=== PATIENT | female | born 1990 | race Caucasian/White ===

== ENCOUNTER 2023-09-17 15:42 | Emergency (ER) | payer BC, SELFPAY ==
[2023-09-17 15:56] VITALS: BP 144/94; PULSE 72; RESP 16; TEMP 37.4; O2SAT 100
--- NOTE | 2023-09-17 16:31 | ED.DIZZY ---
HPI - Dizziness General Chief Complaint: Dizziness Stated Complaint: lightheaded,numbness Time Seen by Provider: 09/17/23 16:14 Source: patient, family (mother) and RN notes reviewed Mode of arrival: ambulatory Limitations: no limitations History of Present Illness HPI Narrative: Patient presents today complaining of dizziness that came on suddenly when she turned her head to the side while at work today approx 4 hours prior to exam. Dizziness is worse with head movement. Denies nausea or vomiting, or any additional symptoms. No [id number] treatment prior to arrival. Related Data Home Medications Medication Instructions Recorded Confirmed No Home Medications 09/17/23 09/17/23 Allergies Allergy/AdvReac Type Severity Reaction Status Date / Time spironolactone Allergy Intermediate Other Verified 09/17/23 16:02 Review of Systems Review of Systems: CONSTITUTIONAL: Denies body aches, fever, chills, or sweats. EYES: Denies visual changes, redness, or discharge. ENT: Denies rhinorrhea, congestion, sore throat, or otalgia. CARDIOVASCULAR: Denies chest pain, palpitations, or edema. RESPIRATORY: Denies cough or dyspnea. GASTROINTESTINAL: Denies abdominal pain, nausea, vomiting, or diarrhea. GENITOURINARY: Denies dysuria or hematuria. SKIN: Denies rash, itching, or wounds. MUSCULOSKELETAL: Denies back pain, joint pain, or myalgia. NEUROLOGIC: Denies headache, numbness, tingling, or weakness.+ dizziness PSYCH: Denies depression or anxiety. PMFSH Comments At time of signature, I have reviewed and agree with nursing past medical, surgical, social and family history unless otherwise noted. Please see nursing chart for further information. There is no relevant family history pertinent to the presenting complaint Exam Narrative: GENERAL: Well-appearing, well-nourished, and in no acute distress. HEAD: Normocephalic, atraumatic. EYES: EOMI. PERRL. No redness or drainage. Conjunctivae normal. ENT: Mucous membranes pink and moist. Nares clear. No rhinorrhea. TMs normal bilaterally. NECK: Normal AROM. Supple. No lymphadenopathy. CHEST: No respiratory distress. EXTREMITIES: Normal range of motion. No edema. Hand machine captain equal and strong. Dorsiflexion and plantar flexion equal and strong against resistance SKIN: Warm, dry, no rash. Capillary refill normal. Normal skin turgor. NEURO: No focal deficits. Alert and oriented x3. Gait steady. Dizziness elicited with head movement from side to side. Dizziness is also worse when rolling side to side while supine. PSYCH: Normal affect. No signs of depression or anxiety. Course Course Level of Care: Express Care Visit Vital Signs Vital signs: Vital Signs Temperature 99.3 F 09/17/23 15:56 Pulse Rate 72 09/17/23 15:56 Respiratory Rate 16 09/17/23 15:56 Blood Pressure 144/94 H 09/17/23 15:56 Pulse Oximetry 100 09/17/23 15:56 Oxygen Delivery Room Air 09/17/23 15:56 Temperature 99.3 F 09/17/23 15:56 Pulse Rate 72 09/17/23 15:56 Respiratory Rate 16 09/17/23 15:56 Blood Pressure 144/94 H 09/17/23 15:56 Pulse Oximetry 100 09/17/23 15:56 Oxygen Delivery Room Air 09/17/23 15:56 Reviewed MDM - Dizziness MDM Narrative Medical decision making narrative: Patient's symptoms are likely related to vertigo. Recommend meclizine and rest. [facility] Recommend PCP follow-up by the end of the week if symptoms are not improving. Anticipatory guidance given. ED precautions given. Differential Diagnosis Differential diagnosis: Likely benign paroxysmal positional vertigo, acute vestibular neuronitis and other (Otitis media) Critical Care Time Critical Care Time Critical Care Time: No Discharge Plan Discharge Clinical Impression: Vertigo Patient Disposition: Home, Self-Care Condition: Stable Instructions: Vertigo (DC) Additional Instructions: Your symptoms are likely related t
== END 2023-09-17 16:45 | disposition home or self-care (01) ==
PROVIDERS: Emergency Provider Nurse Practitioner
DX: R42 Dizziness and giddiness (principal)
CPT/HCPCS: 99203; G0463